=== PATIENT | female | born 1975 | race Caucasian/White ===

== ENCOUNTER 2021-11-16 21:33 | Emergency (ER) | payer OTHER ==
[2021-11-16 22:38] LABS: BASOPHIL 0.2 % (0-2); BILIRUBIN NEGATIVE (NEGATIVE); BLOOD NEGATIVE Ery/uL (NEGATIVE); CLARITY CLEAR (CLEAR); COLOR YELLOW (YELLOW); GLUCOSE (U) NORMAL (NORMAL); HCT 41.6 % (37.0-47.0); HGB 13.9 g/dl (12.5-16.0); LEUKOCYTES NEGATIVE Leu/uL (NEGATIVE); LYMPHOCYTE 18.8 % (15-48); MCH 32.2 pg (25.0-31.0); MCHC 33.4 g/dL (32.0-36.0); MCV 96.3 fL (78.0-100.0); MONOCYTE 6.2 % (0-12); MPV 9.4 fL (6.0-9.5); NEUTROPHIL 73.2 % (41-80); NITRITE NEGATIVE (NEGATIVE); NRBC 0; PLT 310 K/uL (150-400); PROTEIN NEGATIVE (NEGATIVE); RBC 4.32 M/uL (4.20-5.40); RDW 12.2 % (11.5-14.0); UROBILINOGEN 0.2 mg/dL (0.2-1.0); WBC 14.3 K/uL (4.0-10.5); pH 6.5 (5.0-9.0)
[2021-11-16 22:57] LABS: ALBUMIN 3.9 g/dL (3.4-5.0); BILIRUBIN - TOTAL 0.2 mg/dL (0.2-1.0); BUN/CREAT RATIO (CALC) 25.7 RATIO; CREATININE 0.7 mg/dL (0.51-0.95); GLOBULIN (CALCULATION) 3.7 g/dL; POTASSIUM 4.3 mmol/L (3.5-5.1); TOTAL PROTEIN 7.6 g/dL (6.4-8.2)
[2021-11-17] MEDS ORDERED: PERCOCET 5-3251 EACH PO (00:25)
[2021-11-17] MEDS ORDERED: NAPROXEN500 MG PO (00:25)
[2021-11-17] MEDS ORDERED: ONDANSETRON ODT4 MG PO (00:25)
== END 2021-11-17 00:40 | disposition home or self-care (01) ==
LOC: FER 21:33
PROVIDERS: Physician Assistant
DX: K80.80 Other cholelithiasis without obstruction (principal); F17.210 Nicotine dependence, cigarettes, uncomplicated; Z28.310 Unvaccinated for COVID-19
CPT/HCPCS: 36415; 80053; 81003; 83690; 85025; J2270; J2405; J7030; Q9967

== ENCOUNTER → 2022-02-09 | Day surgery (SDC) | payer OTHER ==
[~2022-02-09] VITALS: Ht 162.6 cm; Wt 108.9 kg
[~2022-02-09] MED LIST: ACETAMINOPHEN500 M1 PO; CLARITIN10 MG PO; COLACE100 MG PO; DOXYCYCLINE HY100 MG PO; HYDROCHLOROTH12.5 MG PO; MOTRIN600 MG PO; NAPROXEN500 MG PO; OMEPRAZOLE 20MG20 MG PO; ONDANSETRON ODT4 MG PO; OXY-IR 5MG5 MG PO; PERCOCET 5-3251 EACH PO; PROZAC20 MG PO; WELLBUTRIN XL150 MG PO
[2022-02-09 09:04] LABS: HCG (URINE) SCREEN NEGATIVE (NEGATIVE)
[2022-02-09 09:57] LABS: BUN/CREAT RATIO (CALC) 19.7 RATIO; CREATININE 0.71 mg/dL (0.51-0.95); POTASSIUM 4.3 mmol/L (3.5-5.1)
== END | disposition home or self-care (01) ==
LOC: FAS 07:30
PROVIDERS: Anesthesiology
DX: K80.12 Calculus of gallbladder with acute and chronic cholecystitis without obstruction (principal); I10 Essential (primary) hypertension; K21.9 Gastro-esophageal reflux disease without esophagitis; F17.210 Nicotine dependence, cigarettes, uncomplicated; Z79.899 Other long term (current) drug therapy
CPT/HCPCS: 36415; 80048; 84703; 93005; J1170; J1644; J2250; J2704; J2710; J3010; J7120

== ENCOUNTER → 2022-04-20 | Day surgery (SDC) | payer OTHER ==
[~2022-04-20] VITALS: Ht 162.6 cm; Wt 99.8 kg
[~2022-04-20] MED LIST changes: +MIRENA1 EACH IY
[2022-04-20 06:33] LABS: HCG (URINE) SCREEN NEGATIVE (NEGATIVE)
== END | disposition home or self-care (01) ==
LOC: FAS 05:58
PROVIDERS: Student in an Organized Health Care Education/Training Program
DX: Z12.11 Encounter for screening for malignant neoplasm of colon (principal); K57.30 Diverticulosis of large intestine without perforation or abscess without bleeding; I10 Essential (primary) hypertension; F32.A Depression, unspecified; K21.9 Gastro-esophageal reflux disease without esophagitis; F17.210 Nicotine dependence, cigarettes, uncomplicated; Z90.49 Acquired absence of other specified parts of digestive tract
CPT/HCPCS: 84703; J2704; J7120